=== PATIENT | male | born 1930 | race Two or more races ===

== ENCOUNTER 2017-11-19 05:55 | Day surgery (SDC) | payer OTHER ==
[~2017-11-19 05:55] MED LIST: AMIODARONE HCL200 MG PO; CILOSTAZOL50 MG PO; CIPRO500 MG PO; FLAGYL500MG PO; IMODIUM A-D2 MG PO; INTESTINEX1 CA1 PO; INTESTINEX680 MG PO; METOPROLOL SUCC25 MG PO; METROPOLOL PO; OMEPRAZOLE20 MG PO; OXYC1TAB9 PO; PANTOPRAZOLE; PLAVIX75 MG PO; SYNTHROID50 MCG PO; ZANTAC300 MG PO; ZOCOR20 MG PO; [UNRECOGNIZED DRUG - OTHER] PO
== END 2017-11-19 10:05 | disposition home or self-care (01) ==
LOC: AMB-ENDOS 05:55 → ADM 12:30
DX: K57.30 Diverticulosis of large intestine without perforation or abscess without bleeding (principal)